=== PATIENT | female | born 1950 | race Caucasian/White ===

== ENCOUNTER 2023-04-18 12:46 | Outpatient (REF) | payer BC, SELFPAY ==
--- NOTE | ~2023-04-18 | XR_ITS ---
EXAMINATION: XR LUMBOSACRAL SPINE WITH OBLIQUES CLINICAL INFORMATION: Arthrodesis status COMPARISON: None available. TECHNIQUE: 4 views of the lumbar spine inclusive of flexion and extension views. FINDINGS: Bones are diffusely demineralized. Surgical coils project over the pelvis. Degenerative changes with sclerosis on limited views of bilateral sacroiliac joints and hips. Posterior fixation with rods and transpedicular screws at L5-S1. Interdisc spacer at L5-S1. Hardware appears intact. Moderate multilevel lumbar spondylosis with loss of disc space height at L3-L4. Possible minimal anterolisthesis of L5 on S1 with flexion. XR/XR lumbar spine 4V min IMPRESSION: Posterior fixation with rods and transpedicular screws at L5-S1. Interdisc spacer at L5-S1. Hardware appears intact. Multilevel lumbar spondylosis.
== END 2023-04-18 12:47 | disposition home or self-care (01) ==
LOC: HO.HOSX 12:46
PROVIDERS: PCP Internal Medicine; Visit Provider Physician Assistant
DX: M54.9 Dorsalgia, unspecified (principal); Z98.1 Arthrodesis status
CPT/HCPCS: 72110